=== PATIENT | female | born 1950 | race Caucasian/White ===

== ENCOUNTER 2017-12-31 13:02 | Emergency (ER) | payer MEDICARE, SELFPAY ==
[2017-12-31 13:03] VITALS: BP 158/104; PULSE 104; RESP 18; TEMP 35.6; O2SAT 98; BMI 30.7
--- NOTE | 2017-12-31 13:11 | CT_ITS ---
STUDY: CT BRAIN WITHOUT CONTRAST REASON FOR EXAM: Female, 67 years old. DIZZINESS X-SEVERAL DAYS--WORSE TODAY RADIATION DOSAGE (If Supplied By Facility): CTDIvol = ( 44.99 ) mGy, DLP = ( 779.24 ) mGycm TECHNIQUE: Transaxial CT imaging of the brain was performed without administration of intravenous contrast material. Individualized dose optimization techniques were used for this CT. COMPARISON: None. FINDINGS: Normal soft tissue structures. Normal calvarium. Normal size ventricles and extra-axial spaces for the patient's age. Normal white matter tracts of the cerebral hemispheres. Normal basal ganglia and thalami. Normal brainstem. Normal cerebellum. There is no intracranial hemorrhage. There are no findings of an acute ischemic infarction. Normal visualized paranasal sinuses. CT/Brain/Head without Contrast IMPRESSION: No acute abnormality is demonstrated. Electronically Signed: Cinthya Aquino MD at 14:59 EDT , Service support ,
--- NOTE | 2017-12-31 13:15 | RAD_ITS ---
STUDY: X-RAY CHEST REASON FOR EXAM: Female, 67 years old. Shortness of breath and dyspnea. TECHNIQUE: Single AP portable view of the chest. COMPARISON: Prior comparison studies are not available for review at this time. FINDINGS: The lungs are clear and expanded. There is no demonstrated pleural abnormality. Normal size heart. Normal mediastinum and valeri. Normal visualized pulmonary arteries. There is atherosclerotic calcification of the aortic arch with tortuosity. There is demineralization of the osseous structures. 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 There is no demonstrated abnormality of the visualized soft tissue structures of the upper abdomen. RAD/Chest 1 View (Portable) IMPRESSION: No active pulmonary disease. Electronically Signed: Ap Nuno MD at 13:39 EDT Tel , Service support ,
--- NOTE | 2017-12-31 13:15 | EKG12_ITS ---
Test Reason : DIZZINESS Blood Pressure : / mmHG Vent. Rate : 096 BPM Atrial Rate : 096 BPM P-R Int : 150 ms QRS Dur : 070 ms QT Int : 350 ms P-R-T Axes : 058 -08 063 degrees QTc Int : 442 ms Normal sinus rhythm Normal ECG Confirmed by WILLIAM CURTIS, EUGENE ([id number]), magazine editor ANGE RODRIGUEZ ([id number]) on 01/02/2018 2:56:10 PM Referred By: KRISTIE Confirmed By:EUGENE THOMAS MD
[2017-12-31 13:29] LABS: Absolute Lymphocyte Count 2.18 X10^3/ul (0.83-4.51); Absolute Neutrophil Count 5.4 X10^3/uL (2.0-7.7); Basophil# 0.05 X10^3/uL; Basophil% 0.6 % (0-1); Eosinophil# 0.32 X10^3/uL; Eosinophils% 3.7 % (0-5); Hematocrit 40.4 % (37-47); Lymphocyte # 2.18 X10^3/ul (4.0); Lymphocyte % 25.5 % (19-41); Mean Corp Hgb Conc 32.2 g/gl (32-36); Mean Corpuscular Hgb 28.7 pg (27.0-32.0); Mean Corpuscular Volume 89.2 fL (81-99); Mean Platelet Vol. 11.8 fl (6.2-12.0); Monocyte# 0.57 X10^3/uL; Monocyte% 6.7 % (0-10); Neutrophil # 5.38 X10^3/uL (2.7-7.7); Platelet Count 199 K/mm3 (150-450); RBC Distribution Width CV 14.7 % (11.6-14.6); RBC Distribution Width SD 47.1 fl (35.1-43.9); Red Blood Count 4.53 M/mm3 (4.2-5.4); White Blood Count 8.5 K/mm3 (4.4-11.0)
[2017-12-31 13:31] LABS: POSITIVE COUNT NO; POSITIVE DIFFERENTIAL NO; POSITIVE MORPHOLOGY NO
--- NOTE | 2017-12-31 13:34 | CT_ITS ---
STUDY: CT ABDOMEN AND PELVIS WITHOUT CONTRAST REASON FOR EXAM: Female, 67 years old. BLOATING/GAS SURG-INTESTINAL RE-ROUTING D/T ADHESIONS,GB,APPY,GASTRIC BYPASS RADIATION DOSAGE (If Supplied By Facility): CTDIvol = ( 21.34 ) mGy, DLP = ( 1220.82 ) mGycm TECHNIQUE: Transaxial images were obtained from the dome of the diaphragm to the symphysis pubis without oral contrast, and without intravenous contrast. Sagittal and coronal images were reconstructed. Individualized dose optimization techniques were used for this CT. COMPARISON: August 03, 2015 FINDINGS: The visualized lung bases are hyperexpanded. The visualized portions of the heart are within normal limits. Normal liver. There has been a cholecystectomy. There previously described splenic hypodensity is not well seen. Normal pancreas. Normal bilateral adrenal glands. There is stable right renal scarring and mild atrophy. There are stable left renal parapelvic cysts. There is a stable hiatal hernia.. Again seen are postoperative changes of the stomach. There are a few dilated small bowel loops in the right abdomen consistent with a partial proximal small bowel obstruction. This involves the duodenum and proximal jejunum.. There are multiple colonic diverticula consistent with diverticulosis. There is non-visualization of the appendix. There is diffuse atherosclerotic calcification of the abdominal aorta, without a demonstrated aneurysm. Normal inferior vena cava. There has been a hysterectomy. There is mild free pelvic fluid. Normal urinary bladder. Normal abdominal wall. There is diffuse osteopenia. CT/Abdomen/Pelvis without Cont IMPRESSION: There is a partial proximal small bowel obstruction. There is mild free pelvic fluid. Other chronic findings. Electronically Signed: Cinthya Aquino MD at 15:12 EDT , Service support ,
--- NOTE | 2017-12-31 13:41 | ED.VISSUMM ---
- ER Visit Summary Date of Service: 12/31/17 Chief Complaint: [] Epigastric pressure causing dizziness History of Present Illness: The patient is a 67 F [] patient has multiple complaints. She basically states she has had chronic shortness of breath chronic intermittent abdominal pain since she had gastric bypass surgery. She reports today she was in her home when she began having epigastric pain that caused her to be dizzy this occurred 3 times at one time made her diaphoretic and she came in for evaluation she is not sure why she would have epigastric pain. In addition she has chronic shortness of breath etiology which is unclear she has had pulmonary function tests and other tests that were not diagnostic except she reports she was told she might have early COPD. She has no history of HI PE or DVT she has not been immobilized she has no leg swelling. She points directly to the epigastric complain intermittent of discomfort here but she is having no symptoms now she is resting the bed no distress she is status post cholecystectomy Physical Examination: [] Her physical exam again is really unremarkable her HEENT exam is unremarkable her cranial nerve exam is unremarkable no nystagmus her lungs are clear heart tones are normal the abdomen is soft her BMI, she has no focality her complaints of this nonspecific abdominal discomfort is about 32 she is moving all 4 extremities no cyanosis clubbing or edema she is moving all 4 extremities I cannot reproduce her dizziness anyway I cannot reproduce her epigastric discomfort and again as she the rest of the bed she has no complaints The patient has a history of gastric bypass surgery chronic shortness of breath but no history of HI PE DVT stroke or seizure she indicates she is resting comfortably with no symptoms now her symptoms were triggered by epigastric discomfort that caused her to be dizzy evaluation will be pursued Patient's lab studies reveal generally unremarkable active except her d-dimer is 16, her abdominal CT noncontrast shows small bowel obstruction, her chemistry panel reveals slight decrease in CO2 of 20 white count normal EKG and other labs generally unremarkable see those reports Patient now recalls having prior small bowel obstruction she was treated here at [place] about a year or 2 for that, we spoke with the hospitalist we spoke with the surgeons, they recommended CTA of chest and abdomen to look for signs of PE and/or arterial insufficiency to the intestinal tract, surgery then suggested that her condition is likely best managed at a tertiary care center, I spoke with the family they agree to transfer to [facility] I will speak with [facility] take arrangements to transfer her there Also the CTA chest and abdomen will be on the chart as they are not available yet Test Results: [] Emergency Department Course and Treatment: [] Treatment Plan: [] Transfer to [facility] for evaluation of abdominal pain small bowel obstruction prior gastric bypass surgery Disposition: [] Impression: [] Abdominal pain related to partial small bowel obstruction, history of gastric bypass surgery, under evaluation for pulmonary embolism, 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 It may contain incorrect words, spelling, and punctuation that were not noted in review of the chart prior to signing ED Disposition - Plan for ED Patient: Chief Complaint: Dizziness Referrals: Lucia Robertson MD [Primary Care Provider] -
--- NOTE | 2017-12-31 13:44 | ED.DCSUM_ITS ---
- ER Visit Summary Date of Service: 12/31/17 Chief Complaint: [] Epigastric pressure causing dizziness History of Present Illness: The patient is a 67 F [] patient has multiple complaints. She basically states she has had chronic shortness of breath chronic intermittent abdominal pain since she had gastric bypass surgery. She reports today she was in her home when she began having epigastric pain that caused her to be dizzy this occurred 3 times at one time made her diaphoretic and she came in for evaluation she is not sure why she would have epigastric pain. In addition she has chronic shortness of breath etiology which is unclear she has had pulmonary function tests and other tests that were not diagnostic except she reports she was told she might have early COPD. She has no history of PA PE or DVT she has not been immobilized she has no leg swelling. She points directly to the epigastric complain intermittent of discomfort here but she is having no symptoms now she is resting the bed no distress she is status post cholecystectomy Physical Examination: [] Her physical exam again is really unremarkable her HEENT exam is unremarkable her cranial nerve exam is unremarkable no nystagmus her lungs are clear heart tones are normal the abdomen is soft her BMI, she has no focality her complaints of this nonspecific abdominal discomfort is about 32 she is moving all 4 extremities no cyanosis clubbing or edema she is moving all 4 extremities I cannot reproduce her dizziness anyway I cannot reproduce her epigastric discomfort and again as she the rest of the bed she has no complaints The patient has a history of gastric bypass surgery chronic shortness of breath but no history of PA PE DVT stroke or seizure she indicates she is resting comfortably with no symptoms now her symptoms were triggered by epigastric discomfort that caused her to be dizzy evaluation will be pursued Patient's lab studies reveal generally unremarkable active except her d-dimer is 16, her abdominal CT noncontrast shows small bowel obstruction, her chemistry panel reveals slight decrease in CO2 of 20 white count normal EKG and other labs generally unremarkable see those reports Patient now recalls having prior small bowel obstruction she was treated here at [place] about a year or 2 for that, we spoke with the hospitalist we spoke with the surgeons, they recommended CTA of chest and abdomen to look for signs of PE and/or arterial insufficiency to the intestinal tract, surgery then suggested that her condition is likely best managed at a tertiary care center, I spoke with the family they agree to transfer to [facility] I will speak with [facility] take arrangements to transfer her there Also the CTA chest and abdomen will be on the chart as they are not available yet Test Results: [] Emergency Department Course and Treatment: [] Treatment Plan: [] Transfer to [facility] for evaluation of abdominal pain small bowel obstruction prior gastric bypass surgery Disposition: [] Impression: [] Abdominal pain related to partial small bowel obstruction, history of gastric bypass surgery, under evaluation for pulmonary embolism, arterial insufficiency to GI tract This note was generated with Abazab dictation software. It may contain incorrect words, spelling, and punctuation that were not noted in review of the chart prior to signing ED Disposition - Plan for ED Patient: Chief Complaint: Dizziness Referrals: Lucia Robertson MD [Primary Care Provider] -
[2017-12-31 13:48] LABS: AST(SGOT) 40 U/L (15-37); Alanine Aminotransfer ALT/SGPT 20 U/L (13-56); Albumin, Serum 3.7 g/dL (3.2-5.0); Alkaline Phosphatase 136 U/L (45-117); Anion Gap 8 (5-15); BUN 19 mg/dL (7-18); BUN/Creat Ratio 24.2 RATIO (10-20); Bilirubin, Direct 0.09 mg/dL (0.00-0.30); Calcium,Total 8.5 mg/dL (8.5-10.1); Chloride 113 mmol/L (98-107); Creatinine, Serum 0.79 mg/dL (0.55-1.02); EST Glomerular Filtration Rate 78 mL/min (>60); Est Glom Filt Rate - Afr Amer 94 mL/min (>60); Estimated Creatinine Clearance 51.11 ml/min; Globulin 3.7 g/dL (2.2-4.2); Glucose 108 mg/dL (74-106); Lipase 125 U/L (73-393); Potassium 4.3 mmol/L (3.5-5.1); Protein, Total 7.4 g/dL (6.4-8.2); Sodium Level 141 mmol/L (136-145)
[2017-12-31 14:17] LABS: D-Dimer Quantitative (DVT/PE) 16.66 FEU/ug/m (0.27-0.49)
[2017-12-31 15:21] LABS: Mucous, Urine 0 SEEN /hpf (<or=2+); Red Blood Cells-Urine 0 SEEN /hpf (0-5)
[2017-12-31 15:22] VITALS: BP 146/84; PULSE 85; RESP 16; O2SAT 98
[2017-12-31 15:27] LABS: Color, Urine Yellow (Yellow); Glucose, Dipstick Normal (Normal); Ketone-Dipstick 5 mg/dl (Negative); Leukocyte Esterase-Dipstick 100 /ul (Negative); Nitrite-Dipstick Positive (Negative); Occult Blood-Urine 25 /ul (Negative); Protein-Dipstick 15 mg/dl (Negative); Specific Gravity, Urine 1.025 (1.002-1.030); Urine Bilirubin Dipstick 1 mg/dL (Negative); Urine Clarity Clear (Clear); Urine Urobilinogen Normal (Normal)
--- NOTE | 2017-12-31 15:38 | CT_ITS ---
STUDY: CTA CHEST REASON FOR EXAM: Female, 67 years old. Elevated d-dimer RADIATION DOSAGE (If Supplied By Facility): CTDIvol = ( 12.33 ) mGy, DLP = ( 822.08 ) mGycm TECHNIQUE: The examination was performed with the intravenous administration of 100CC ml of Isovue 370 contrast material. Post-processing of the angiographic images was performed, with multiplanar reformation and 3D reconstruction. Individualized dose optimization techniques were used for this CT. COMPARISON: X-ray earlier in the day, nonenhanced CT abdomen and pelvis earlier in the day FINDINGS: Normal enhancement of the main pulmonary artery and right and left pulmonary arteries. Normal enhancement of the bilateral peripheral pulmonary arteries. There is no demonstrated pulmonary embolism. There is atherosclerotic calcification of the aortic arch with tortuosity. There is no demonstrated aortic dissection. Normal heart and pericardium. Normal mediastinum. Normal hilar regions. Normal visualized trachea and bronchi. The lungs are hyper expanded, with flattening of the hemidiaphragms. There is a right apical calcified granuloma. There is mild right upper lobe scarring. Normal pleura. Normal chest wall structures. There is diffuse osteopenia. Again seen is a small hiatal hernia. There is a 2.3 cm hypodensity of the spleen, stable since the CT August 03, 2015. CT/CTA Chest W/WO Contrast IMPRESSION: No demonstrated pulmonary embolism or aortic dissection. The lungs are hyperexpanded. Electronically Signed: Cinthya Aquino MD at 18:23 EDT , Service support ,
[2017-12-31 15:39] LABS: Squamous Epithelial Cells - UA 0-5 SEEN /hpf (5-10); White Blood Cells 5-10 SEEN /hpf (0-5)
--- NOTE | 2017-12-31 15:39 | CT_ITS ---
STUDY: CTA OF THE ABDOMINAL AORTA REASON FOR EXAM: Female, 67 years old. ARTERIAL FLOW FOLLOW UP TO ABD/PEL WO CONTRAST DONE EARLIER RADIATION DOSAGE (If Supplied By Facility): CTDIvol = ( 12.33 ) mGy, DLP = ( 822.08 ) mGycm TECHNIQUE: Axial CT angiography multi-detector data acquisition was obtained from the dome of the diaphragm to the iliac crest following intravenous administration of 100CC ml of Isovue 370 contrast. Axial images and MIP images were reconstructed from the axial data set. Post-processing of the angiographic images was performed, with multiplanar reformation and 3D reconstruction. Individualized dose optimization techniques were used for this CT. TECHNICAL QUALITY: Good COMPARISON: Nonenhanced CT earlier in the day Descriptors of Narrowing: None (0%) Mild (< 50%) Moderate (50-70%) Severe (70-90%) Subtotal/Total Occlusion (90-100%) Non-Evaluable (technically non-diagnostic FINDINGS: There is diffuse arteriosclerosis. Abdominal aorta: No demonstrated narrowing. Celiac and superior mesenteric arteries: No demonstrated narrowing. Inferior mesenteric artery: No demonstrated narrowing. Right renal artery(arteries): There is atherosclerotic calcification causing mild narrowing of the origin. Left renal artery(arteries): No demonstrated narrowing. Visualized Right common iliac artery: No demonstrated narrowing. Visualized Left common iliac artery: No demonstrated narrowing. CT/CTA Abdomen W/WO Contrast IMPRESSION: There is diffuse arteriosclerosis without a hemodynamically significant stenosis. Electronically Signed: Cinthya Aquino MD at 18:30 EDT , Service support ,
[2017-12-31 15:40] LABS: Bacteria 2+ /hpf (None Seen); Calcium Oxalate Crystals Ur 2+ /hpf (<or=2+)
[2017-12-31] MEDS: 0.9% Normal Saline 1,000 ML 999 ML IV (16:38)
[2017-12-31 17:11] VITALS: BP 175/86; PULSE 75; RESP 16; O2SAT 100
[2017-12-31 17:27] VITALS: BP 175/86; PULSE 75; RESP 16; TEMP 35.6; O2SAT 100
[2017-12-31] MEDS: Morphine 4 MG/ML Syringe IM (17:37)
== END 2017-12-31 17:54 | disposition short-term general hospital (02) ==
PROVIDERS: Emergency Provider Emergency Medicine; Family Provider Internal Medicine; PCP Internal Medicine
DX: K56.600 Partial intestinal obstruction, unspecified as to cause (principal); K55.1 Chronic vascular disorders of intestine; I10 Essential (primary) hypertension; Z98.84 Bariatric surgery status; Z90.49 Acquired absence of other specified parts of digestive tract; Z79.899 Other long term (current) drug therapy
CPT/HCPCS: 70450; 71045; 71275; 74175; 74176; 80048; 80076; 81001; 83690; 85025; 85379; 93005; 96360; 96372; 99285; J7030; J7040; Q9967; A4216

== ENCOUNTER 2019-06-01 10:32 | Emergency (ER) | payer MEDICARE, MEDICAID, SELFPAY ==
[2019-06-01 10:33] VITALS: BP 203/114; PULSE 112; RESP 24; TEMP 36.3; O2SAT 99; BMI 30.2
--- NOTE | 2019-06-01 10:52 | EKG12_ITS ---
Test Reason : SOB Blood Pressure : / mmHG Vent. Rate : 091 BPM Atrial Rate : 091 BPM P-R Int : 158 ms QRS Dur : 072 ms QT Int : 352 ms P-R-T Axes : 049 015 052 degrees QTc Int : 432 ms Normal sinus rhythm Increased R/S ratio in V1, consider early transition or posterior infarct Abnormal ECG Confirmed by KAREL CURTIS, ELVI ([id number]), health editor ANGE RODRIGUEZ ([id number]) on 06/04/2019 11:52:38 AM Referred By: ELOISA Confirmed By:SADAF VINSON MD
[2019-06-01 11:08] LABS: Absolute Lymphocyte Count 2.28 X10^3/uL (0.83-4.51); Absolute Neutrophil Count 3.1 X10^3/uL (2.0-7.7); Basophil# 0.05 X10^3/uL; Basophil% 0.8 % (0-1); Eosinophil# 0.16 X10^3/uL; Eosinophils% 2.6 % (0-5); Hematocrit 35.4 % (37-47); Hemoglobin 10.9 g/dL (12.0-15.0); Lymphocyte # 2.28 X10^3/ul (4.0); Lymphocyte % 37.5 % (19-41); Mean Corp Hgb Conc 30.8 g/dL (32-36); Mean Platelet Vol. 10.8 fl (6.2-12.0); Monocyte# 0.48 X10^3/uL; Monocyte% 7.9 % (0-10); NRBC Flagged by Analyzer 0 % (0-5); Platelet Count 236 K/mm3 (150-450); RBC Distribution Width SD 43.3 fl (35.1-43.9); Red Blood Count 3.89 M/mm3 (4.2-5.4); White Blood Count 6.1 K/mm3 (4.4-11.0)
[2019-06-01 11:20] LABS: Red Blood Cells-Urine 0 SEEN /hpf (0-5); Squamous Epithelial Cells - UA 0 SEEN /hpf (5-10); White Blood Cells 0 SEEN /hpf (0-5)
[2019-06-01 11:22] LABS: Color, Urine Yellow (Yellow); Glucose, Dipstick Normal (Normal); Ketone-Dipstick 5 mg/dl (Negative); Leukocyte Esterase-Dipstick Negative /ul (Negative); Nitrite-Dipstick Negative (Negative); Occult Blood-Urine 25 /ul (Negative); Protein-Dipstick 15 mg/dl (Negative); Urine Bilirubin Dipstick Negative (Negative); Urine Clarity Sl. Cloudy (Clear); Urine Urobilinogen Normal (Normal)
[2019-06-01 11:24] VITALS: BP 165/114; PULSE 70; RESP 13; O2SAT 97
[2019-06-01 11:29] LABS: Bacteria RARE /hpf (None Seen); Hyaline Cast 0-5 SEEN /lpf (0-5); Mucous, Urine 1+ /hpf (<or=2+)
[2019-06-01 11:30] LABS: Anion Gap 7 (5-15); BUN 15 mg/dL (7-18); BUN/Creat Ratio 21.4 RATIO (10-20); Calcium,Total 8.9 mg/dL (8.5-10.1); Chloride 110 mmol/L (98-107); EST Glomerular Filtration Rate 88 mL/min (>60); Est Glom Filt Rate - Afr Amer 106 mL/min (>60); Estimated Creatinine Clearance 48.45 ml/min; Glucose 93 mg/dL (74-106); Potassium 4.2 mmol/L (3.5-5.1); Sodium Level 141 mmol/L (136-145)
--- NOTE | 2019-06-01 11:30 | RAD_ITS ---
STUDY: X-RAY CHEST REASON FOR EXAM: Female, 68 years old. 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 Small calcified pulmonary nodule at the right lung apex consistent with old granulomas disease. The lungs are otherwise clear and symmetric. Normal cardiomediastinal silhouette, valeri and pleural margins. No acute osseous or upper abdominal process. Mild thoracal lumbar scoliosis and thoracic kyphosis. Osteopenia. RAD/Chest PA and Lateral IMPRESSION: No acute cardiopulmonary process. Electronically Signed: Srinivas Silverman MD at 12:15 EDT Tel , Service support ,
[2019-06-01 12:09] VITALS: BP 191/104; PULSE 66; RESP 18; O2SAT 99
--- NOTE | 2019-06-01 12:43 | ED.VIS.GEN ---
History of Present Illness Informant: Patient Onset: Month(s) - 1 month Context: Gradual Onset Timing: Continuous Quality: MAST Location: chest Current Severity: Mild Maximum Severity: Moderate Worsened by: exertion Relieved by: rest Associated Symptoms: urinary frequency Narrative: 68-year-old female presents to the emergency department with shortness of breath for the last 1 month and urinary frequency. Patient has chronic shortness of breath. She is seen pulmonology. She does not have a formal diagnosis. She has dyspnea on exertion which is chronic for her. It is slightly worse than her baseline. She has no cough, congestion, chest pain, lightheadedness, dizziness, nausea vomiting or diaphoresis. No leg pain or swelling. No fevers. No vomiting. She has urinary frequency. Recently completed a course of Bactrim through her family physician. No hematuria. No abdominal pain or back pain. Denies any other review of systems. Prior similar symptoms: Yes Recent Illness/Hospitalization: No <Benedicto Kothari - Last Filed: 06/01/19 12:50> <Tato Hubbard - Last Filed: 06/01/19 14:47> Chief Complaint: Shortness of Breath Past Medical History Prior records reviewed: Yes Past Medical History: - - Chronic dyspnea on exertion Surgical History: cholecystectomy, hysterectomy, tonsillectomy, Gastric bypass Lives: With Family Smoking Status: Never smoker <Benedicto Kothari - Last Filed: 06/01/19 12:50> <Tato Hubbard - Last Filed: 06/01/19 14:47> - Allergies and Home Meds Allergies/Adverse Reactions: Allergies codeine Allergy (Verified 06/01/19 10:33) [facility] Physician: Lucia Robertson MD [Primary Care Provider] - Review of Systems All systems negative except as indicated Cardiovascular: Denies: Chest pain Respiratory: Reports: Dyspnea, Dyspnea on exertion. Denies: Cough, Sputum, Orthopnea, Paroxysmal nocturnal dyspnea <Benedicto Kothari - Last Filed: 06/01/19 12:50> Physical Exam Vital Signs/Narrative: Vital Signs Temp Pulse Resp BP Pulse Ox 06/01/19 12:09 66 18 191/104 H 99 06/01/19 11:24 70 13 165/114 H 97 06/01/19 10:33 97.3 F L 112 H 24 H 203/114 H 99 Inital Vital Signs reviewed: Yes General: Well nourished, Well developed, No Acute Distress Head: Normocephalic, Atraumatic Eyes: Perrl, EOMI ENT: Moist mucous membranes Neck: Supple, Nontender Cardiovascular: Regular rate, Regular rhythm, No murmurs Respiratory: No distress, CTA bilaterally, Chest nontender Abdomen: Soft, Nontender, Nondistended, Normal bowel sounds, No masses Back: Nontender, Normal Inspection Extremities: Nontender, No edema Skin: Normal color, No rash Neurological: Alert, Oriented x3 Psychological: Normal affect <Benedicto Kothari - Last Filed: 06/01/19 12:50> Vital Signs/Narrative: Vital Signs Pulse Resp BP Pulse Ox 06/01/19 13:18 70 16 163/74 H 98 06/01/19 12:09 66 18 191/104 H 99 06/01/19 11:24 70 13 165/114 H 97 <Tato Hubbard - Last Filed: 06/01/19 14:47> Diagnostic/Tx/Re-eval Chest X-Ray - ED: 2 View, Read by ED Physician, Read by Radiologist, No Acute Disease - Rhythm Strip Rhythm Strip: Sinus Rhythm Rate: 91 Ectopy: None - EKG Initial EKG Interpretation: Sinus Rhythm, No Acute Injury Pattern - Medical Decision Making Laboratory work-up was unremarkable. Troponin and proBNP both negative. Her chest x-ray is unremarkable. Her urinalysis is negative. Patient's vital signs are stable. This is a chronic issue for the patient. At this time we do not feel this is consistent with angina. She has not had any chest pain. She is comfortable with discharge. We will send a urine culture. She recently completed antibiotics and we do not think she needs more at this time. She was advised follow-up with her family physician. She was agreeable with our plan. Return precautions discussed. <Benedicto Kothari - Last Filed: 06/01/19 12:50> - Medical Decision Making Patient presents for chronic shortness of breath. She is also having lower abdominal pain and is concerned for UTI. Heart regular. Lungs clear. Abdomen soft and nontender. Alert and oriented. Vitals noted, patient is hypertensive. Concern for cardiac, respiratory disease. Also considered urinary etiologies. Nothing to suggest GI etiologies. Her work-up was unremarkable. Blood pressure had improved. Patient will be discharged for outpatient follow-up. Urine culture is pending. <Tato Hubbard - Last Filed: 06/01/19 14:47> ED Disposition <Benedicto Kothari - Last Filed: 06/01/19 12:50> <Tato Hubbard - Last Filed: 06/01/19 14:47> - Plan for ED Patient: Disposition: Home or Assisted Living Diagnosis: Chronic dyspnea, Urinary frequency Instructions: ED Dyspnea Referrals: Lucia Robertson MD [Primary Care Provider] -
[2019-06-01 13:18] VITALS: BP 163/74; PULSE 70; RESP 16; O2SAT 98
== END 2019-06-01 13:18 | disposition home or self-care (01) ==
PROVIDERS: Emergency Provider Physician Assistant Medical; Family Provider Internal Medicine; PCP Internal Medicine
DX: R06.09 Other forms of dyspnea (principal); R35.0 Frequency of micturition; Z79.899 Other long term (current) drug therapy
CPT/HCPCS: 71046; 80048; 81001; 84484; 85025; 87086; 93005; 99285; A4216

== ENCOUNTER 2020-03-10 12:04 | Emergency (ER) | payer MEDICARE, SELFPAY ==
[2020-03-10 12:06] VITALS: BP 202/105; PULSE 122; RESP 20; TEMP 36.7; O2SAT 98; BMI 33.5
--- NOTE | 2020-03-10 12:32 | EKG12_ITS ---
Test Reason : Blood Pressure : / mmHG Vent. Rate : 072 BPM Atrial Rate : 072 BPM P-R Int : 146 ms QRS Dur : 070 ms QT Int : 396 ms P-R-T Axes : 067 008 025 degrees QTc Int : 433 ms Normal sinus rhythm Nonspecific ST abnormality Abnormal ECG Confirmed by LAUREN HOPKINS ([id number]), production editor RADHA ROA ([id number]) on 03/17/2020 8:06:41 AM Referred By: AVERY Confirmed By:LAUREN HOPKINS
--- NOTE | 2020-03-10 12:33 | CT_ITS ---
STUDY: CT ABDOMEN AND PELVIS WITH CONTRAST REASON FOR EXAM: Female, 69 years old. ELEVATED D-DIMER, ABD PAIN, LLQ/CRAMPING X 1 WEEK RADIATION DOSAGE (If Supplied By Facility): CTDIvol = ( 18.29 ) mGy, DLP = ( 1032.41 ) mGycm TECHNIQUE: Transaxial images were obtained from the dome of the diaphragm to the symphysis pubis with oral contrast. Oral and amp; IV Breeza and amp; 100mL Isovue-370 was administered. Sagittal and coronal images were reconstructed. Individualized dose optimization techniques were used for this CT. COMPARISON: 12/31/2017 FINDINGS: The visualized lung bases are unremarkable. The visualized portions of the heart are within normal limits. Normal liver. There are surgical clips in the gallbladder fossa consistent with a prior cholecystectomy. Normal spleen. Normal pancreas. Normal bilateral adrenal glands. No obstructive uropathy, stable scarring of the right kidney with cortical thinning. Normal left kidney Stable hiatal hernia with postsurgical changes noted at the GE junction. Normal small intestine. There are multiple colonic diverticula consistent with diverticulosis. There is non-visualization of the appendix. There is diffuse atherosclerotic calcification of the abdominal aorta, without a demonstrated aneurysm. Normal inferior vena cava. Normal retroperitoneum. Normal urinary bladder. Normal abdominal wall. There are diffuse degenerative changes of the visualized lumbar spine, and pelvis. CT/Abdomen/Pelvis WITH Contrast IMPRESSION: No suspicious solid organ abnormality, previous cholecystectomy, stable scarring and cortical thinning in the right kidney. Colonic diverticulosis. Stable retrocardiac hiatal hernia with postoperative changes at the GE junction Degenerative bony changes Electronically Signed: Davi Brandt MD at 16:14 EDT , Service support ,
[2020-03-10 12:34] VITALS: BP 161/106; PULSE 90; RESP 24; O2SAT 98
--- NOTE | 2020-03-10 12:34 | ED.DCSUM_ITS ---
- ER Visit Summary Date of Service: 03/10/20 Chief Complaint: Abdominal pain and chest pain History of Present Illness: The patient is a 69 F who presents with abdominal pain and chest pain. Patient states her abdominal pain is been constant for the past couple months. Patient states she saw her primary care physician for this today and when her primary care physician asked about her chest pain she states she was having some substernal chest pain. Patient was then referred to the emergency department. Patient states her chest pain is over the substernal area. Patient states her abdominal pain is in the epigastric and left upper and left lower quadrants. Patient admits to nausea but denies any vomiting. Patient admits to some shortness of breath. Patient also admits to some intermittent palpitations. Patient denies any diarrhea, melena, or hematochezia. Patient denies any dysuria or hematuria. Patient denies any recent travel or recent surgery. Physical Examination: Vital signs are stable except for a blood pressure of 202/105 and a tachycardia of 122. Patient is afebrile. Patient is in no acute distress. Oral mucosa is pink and moist. Neck is supple. Trachea is midline. There is no JVD. Heart was regular rate and rhythm. Lungs are clear and equal bilaterally. Abdomen is soft. Bowel sounds are normal. There is tenderness over the left upper and left lower quadrants. There is no rebound or guarding noted. Cranial nerves II through XII are intact. There are no focal motor or sensory deficits noted. Extremities are intact. There is no calf tenderness or edema. Test Results: EKG showed normal sinus rhythm with a rate of 72. There are no acute ST or T wave changes. This was unchanged compared to previous EKG dated 06/01/2019. CBC was within normal limits. Comprehensive metabolic profile was essentially within normal limits. Urinalysis does not show any evidence of urinary tract infection. D-dimer was elevated at 1.07. CT scan of the abdomen pelvis was obtained. There is no acute abnormality. CTA of the chest was obtained. There is no evidence of PE or dissection. Emergency Department Course and Treatment: Patient was given IV fluids, morphine, and Zofran. Patient was feeling better on reevaluation. Patient was advised of her findings. Patient was instructed to eat a bland diet. Patient was instructed to follow-up with her primary care physician in 5 to 7 days. Patient understood and was agreeable with the plan. All questions were answered. Disposition: Discharge home Impression: Abdominal pain This note was generated with [employer] dictation software. It may contain incorrect words, spelling, and punctuation that were not noted in review of the chart prior to signing ED Disposition - Plan for ED Patient: Disposition: Home or Assisted Living Diagnosis: Abdominal pain Instructions: ED Abdominal Pain Unkn Cause Fem Prescriptions: Ondansetron [Zofran Odt] 4 mg PO Q8H PRN PRN #10 tab PRN Reason: Nausea Prescription Printed Referrals: [facility] Doctor,Out of [NON-STAFF] - 3-5 Days
[2020-03-10] MEDS: Ondansetron 4 MG/2 ML Vial IV (12:45)
[2020-03-10] MEDS: 0.9% Normal Saline 1,000 ML 1000 ML IV (12:45)
[2020-03-10] MEDS: Morphine 4 MG/ML Syringe IV (12:45)
[2020-03-10 12:50] LABS: Absolute Lymphocyte Count 2.58 X10^3/uL (0.83-4.51); Absolute Neutrophil Count 5.5 X10^3/uL (2.0-7.7); Basophil# 0.06 X10^3/uL; Basophil% 0.7 % (0-1); Eosinophil# 0.14 X10^3/uL; Eosinophils% 1.6 % (0-5); Hematocrit 38.2 % (37-47); Hemoglobin 11.3 g/dL (12.0-15.0); Lymphocyte # 2.58 X10^3/ul (4.0); Lymphocyte % 28.7 % (19-41); Mean Corp Hgb Conc 29.6 g/dL (32-36); Mean Corpuscular Hgb 26.2 pg (27.0-32.0); Mean Corpuscular Volume 88.4 fL (81-99); Mean Platelet Vol. 11.3 fl (6.2-12.0); Monocyte# 0.66 X10^3/uL; Monocyte% 7.3 % (0-10); NRBC Flagged by Analyzer 0 % (0-5); Neutrophil % 61.3 % (47-70); Platelet Count 313 K/mm3 (150-450); RBC Distribution Width CV 14.2 % (11.6-14.6); RBC Distribution Width SD 45.7 fl (35.1-43.9); Red Blood Count 4.32 M/mm3 (4.2-5.4)
[2020-03-10 13:04] LABS: ALB/GLOB Ratio 0.9 RATIO (0.9-2.4); AST(SGOT) 52 U/L (15-37); Alanine Aminotransfer ALT/SGPT 29 U/L (13-56); Albumin, Serum 3.8 g/dL (3.2-5.0); Alkaline Phosphatase 156 U/L (45-117); Anion Gap 9 (5-15); BUN 19 mg/dL (7-18); BUN/Creat Ratio 26.2 RATIO (10-20); Calcium,Total 9.3 mg/dL (8.5-10.1); Chloride 105 mmol/L (98-107); Creatinine, Serum 0.72 mg/dL (0.55-1.02); EST Glomerular Filtration Rate 85 mL/min (>60); Est Glom Filt Rate - Afr Amer 102 mL/min (>60); Globulin 4.1 g/dL (2.2-4.2); Glucose 105 mg/dL (74-106); Potassium 4.1 mmol/L (3.5-5.1); Protein, Total 7.9 g/dL (6.4-8.2); Sodium Level 138 mmol/L (136-145)
[2020-03-10 13:05] LABS: D-Dimer Quantitative (DVT/PE) 1.07 FEU/ug/m (0.27-0.49)
--- NOTE | 2020-03-10 13:07 | CT_ITS ---
STUDY: CTA CHEST REASON FOR EXAM: Female, 69 years old. ELEVATED D-DIMER, ABD PAIN, LLQ/CRAMPING X 1 WEEK RADIATION DOSAGE (If Supplied By Facility): CTDIvol = ( 22.04 ) mGy, DLP = ( 1086.01 ) mGycm TECHNIQUE: The examination was performed with the intravenous administration of Oral and amp; IV Breeza and amp; 100mL Isovue-370. Post-processing of the angiographic images was performed, with multiplanar reformation and 3D reconstruction. Individualized dose optimization techniques were used for this CT. COMPARISON: 2017 FINDINGS: There is limited enhancement of the main pulmonary artery and right and left pulmonary arteries. There is limited enhancement of the bilateral peripheral pulmonary arteries. There is no demonstrated pulmonary embolism. Normal thoracic aorta and visualized great vessels. There is no demonstrated aortic dissection. Normal heart and pericardium. There are calcifications of the coronary arteries. Normal mediastinum. Normal hilar regions. There is peribronchial thickening. The lungs are well expanded. Normal pulmonary parenchyma. Normal pleura. Normal chest wall structures. There are degenerative changes of thoracic spine with osteopenia. CT/CTA Chest W/WO Contrast IMPRESSION: No demonstrated PE, or thoracic aortic aneurysm or dissection. However, the contrast bolus within the distal pulmonary arteries is not optimal. No superimposed acute pulmonary process Calcified coronary vessels Degenerative bony changes Evidence of chronic bronchitis Electronically Signed: Davi Brandt MD at 16:16 EDT , Service support ,
[2020-03-10 16:03] LABS: Bacteria 0 SEEN /hpf (None Seen); Mucous, Urine 0 SEEN /hpf (<or=2+); Red Blood Cells-Urine 0 SEEN /hpf (0-5); White Blood Cells 0 SEEN /hpf (0-5)
[2020-03-10 16:05] VITALS: BP 175/100; PULSE 80; RESP 17; O2SAT 98
[2020-03-10 16:08] LABS: Color, Urine Yellow (Yellow); Glucose, Dipstick Normal (Normal); Ketone-Dipstick Negative (Negative); Leukocyte Esterase-Dipstick Negative /ul (Negative); Nitrite-Dipstick Negative (Negative); Occult Blood-Urine Negative /ul (Negative); Protein-Dipstick Negative (Negative); Specific Gravity, Urine 1.005 (1.002-1.030); Urine Bilirubin Dipstick Negative (Negative); Urine Clarity Sl. Cloudy (Clear); Urine Urobilinogen Normal (Normal)
[2020-03-10 16:37] LABS: Squamous Epithelial Cells - UA 0-5 SEEN /hpf (5-10)
[2020-03-10 18:04] VITALS: BP 161/93; PULSE 76; RESP 14; RESP 19; O2SAT 98
== END 2020-03-10 18:05 | disposition home or self-care (01) ==
PROVIDERS: Emergency Provider Emergency Medicine; PCP Nurse Practitioner Family
DX: R10.13 Epigastric pain (principal); R10.12 Left upper quadrant pain; R10.32 Left lower quadrant pain; R11.0 Nausea; R07.9 Chest pain, unspecified; I10 Essential (primary) hypertension; Z98.84 Bariatric surgery status; Z79.899 Other long term (current) drug therapy
CPT/HCPCS: 71275; 74177; 80053; 81001; 84484; 85025; 85379; 93005; 96361; 96374; 96375; 99285; Q9967; A4216; J2405

== ENCOUNTER → 2024-04-05 | Outpatient (CLI) | payer MEDICARE, SELFPAY ==
--- NOTE | 2024-04-05 12:11 | RAD_ITS ---
STUDY: X-RAY - LEFT KNEE REASON FOR EXAM: Female, 73 years old. KNEE PAIN TECHNIQUE: 5 view(s) of the knee. COMPARISON: None. FINDINGS: There is demineralization of the visualized distal femur. There is demineralization of the tibia and fibula. Normal proximal tibiofibular articulation. There is no demonstrated fracture. Normal medial femorotibial compartment. Normal lateral femorotibial compartment. Normal patellofemoral articulation. There is no demonstrated joint effusion. The soft tissue structures are unremarkable. RAD/Knee 4 or More Views IMPRESSION: No acute abnormality. Electronically Signed: Lupillo Harper MD at 22:57 EDT ,
== END | disposition home or self-care (01) ==
PROVIDERS: PCP Internal Medicine; Referring Provider Anesthesiology; Visit Provider Anesthesiology
DX: M25.562 Pain in left knee (principal)
CPT/HCPCS: 73564

== ENCOUNTER → 2024-04-29 | Outpatient (CLI) | payer MEDICARE, SELFPAY ==
--- NOTE | 2024-04-29 13:45 | MRI_ITS ---
EXAM: MR LUMBAR SPINE WITHOUT INTRAVENOUS CONTRAST CLINICAL INDICATION: RADICULOPATHY TECHNIQUE: Multiplanar and multisequence MR images of the lumbar spine without intravenous contrast. COMPARISON: CT chest thoracic and lumbar spine December 31, 2017, CTA chest March 10, 2020, both showing diffuse demineralization and coarse trabeculae of the spine. MRI July 04, 2022. FINDINGS: VERTEBRAE: Unremarkable. Vertebral body heights are preserved. Normal vertebral bodies and posterior elements. Normal alignment. No spondylolisthesis. There is preservation of the normal lumbar lordosis. SPINAL CORD: Unremarkable. Normal position and signal intensity of the conus medullaris. SOFT TISSUES: Unremarkable. DISCS/SPINAL CANAL/NEURAL FORAMINA: L1-L2: Unremarkable. Normal disc height and morphology. Normal spinal canal and lateral recesses. Normal neuroforamina. L2-L3: Unremarkable. Normal disc height and morphology. Normal spinal canal and lateral recesses. Normal neuroforamina. L3-L4: Disc height is unremarkable, decreased T2 signal intensity. Normal spinal canal and lateral recesses. Normal with the exception of mild left posterior lateral protruding disc minimally narrowing the proximal left neural foramen. L4-L5: Mild decreased disc height and signal intensity compared to other disc. Mild Modic type endplate degenerative changes of the far right opposing endplates. Normal spinal canal and lateral recesses. Normal neuroforamina. L5-S1: Mild decreased height and signal intensity and mild Modic type endplate degenerative changes at the far left endplates. Left posterior lateral osteophyte-disc complex mildly narrowing the left neural foramen. No spinal stenosis. MRI/Spine Lumbar (Routine) IMPRESSION: Minimal degenerative changes. Mild neural foraminal stenosis due to mild asymmetrically bulging discs. Greatest on the left. Similar to 2021. Electronically Signed: Mariella Mendez MD at 3:11 EDT ,
== END | disposition home or self-care (01) ==
LOC: MRI 13:10
PROVIDERS: PCP Internal Medicine; Referring Provider Anesthesiology; Visit Provider Anesthesiology
DX: M54.16 Radiculopathy, lumbar region (principal)
CPT/HCPCS: 72148